=== PATIENT | male | born 1940 ===

== ENCOUNTER 2024-04-11 14:06 | Inpatient (IN) | payer OTHER ==
[~2024-04-11] VITALS: Ht 177.8 cm; Wt 77.6 kg
[2024-04-11 13:58] VITALS: BP 138/83
[~2024-04-11 14:06] MED LIST: ATIVAN0.5 MG PO; ATIVAN1 MG PO; ATIVAN2 MG/1 ML IM; DEPAKOTE SPRIN125 MG PO; ECOTRIN81 M1 PO; EXELON1 EAC2 TD; EXELON1 EACH T; FLOMAX0.4 MG PO; FLONASE ALLERG9.9 ML NAS; GEODON20 MG/1 ML IM; LEVOTHYROXINE150 MCG PO; LIPITOR20 MG PO; LOSARTAN POTAS100 M1 PO; NAMENDA-5 PO; PACERONE100 MG PO; PROSCAR5 M1 PO; RISPERDAL0.5 MG PO; SENNA8.6 MG PO; THERA-M CAPLET1 EACH PO; TM-VITE RX T1000 MCG PO; TOPROL XL50 M1 PO; TYLENOL325 M2 PO; VIBRA-TAB100 MG PO; XANAX0.25 MG PO
[2024-04-11] MEDS ORDERED: MG-AL HYDROXIDE/SIMETICONE 30 ML UDC PO PRN (14:50)
[2024-04-11] MEDS ORDERED: LORazepam 1 MG TAB PO PRN (14:50)
[2024-04-11] MEDS ORDERED: Magnesium Hydroxide 30 ML UDC PO PRN (14:50)
[2024-04-11] MEDS ORDERED: ACETAMINOPHEN 325 MG TAB PO PRN (14:50)
[2024-04-11] MEDS ORDERED: Ziprasidone Mesylate 20 MG VIAL IM PRN (15:45)
[2024-04-11] MEDS ORDERED: Water, Sterile 10 ML VIAL IM PRN (15:50)
[2024-04-11] MEDS ORDERED: Ziprasidone Mesylate 20 MG VIAL IM SCH (16:00)
[2024-04-11 20:00] VITALS: BP 181/88
[2024-04-11] MEDS ORDERED: RISPERIDONE 0.5 MG TAB PO SCH (21:00)
[2024-04-11] MEDS ORDERED: Memantine Hydrochloride 5 MG TAB PO SCH (21:00)
[2024-04-11] MEDS ORDERED: LORazepam 0.5 MG TAB PO SCH (22:00)
[2024-04-12 06:50] LABS: BASO % 0.4 % (0.0-1.0); EOS # 0.2 10*3/uL (0.0-0.4); EOS % 4.2 % (1.0-4.0); HEMATOCRIT 43.8 % (42.0-52.0); MEAN CELL VOLUME 87.6 fl (80.0-94.0); MEAN CORPUSCULAR HGB CONC 33.1 g/dl (33.0-37.0); MEAN PLATELET VOLUME 11.2 fl (9.6-12.3); MONO # 0.6 10*3/uL (0.1-1.0); MONO % 12.5 % (3.0-9.0); NEUT # 2.8 10*3/uL (2.3-7.9); NEUT % 60.8 % (47.0-73.0); PLATELET COUNT AUTOMATED 96 10*3/uL (130-400); RED CELL DISTRI WIDTH 14.3 % (0-14.5); WHITE BLOOD COUNT 4.6 10*3/uL (4.8-10.8)
[2024-04-12 07:29] LABS: ALKALINE PHOSPHATASE 115 U/L (46-116); BUN 25 mg/dl (9-23); CHLORIDE 106 mmol/L (98-107); CHOLESTEROL 108 mg/dL (<200); LDL CHOLESTEROL 51 mg/dL (9-159); POTASSIUM 3.4 mmol/L (3.4-5.1); SGPT/ALT 20 U/L (5-49); TOTAL PROTEIN 6.3 gm/dL (6.0-8.0); TRIGLYCERIDES 69 mg/dl (<150)
[2024-04-12 08:00] VITALS: BP 200/86
[2024-04-12 08:10] LABS: VITAMIN D, 25-HYDROXY 49.6 ng/mL (30-100)
[2024-04-12] MEDS ORDERED: METOPROLOL SUCCINATE XR 50 MG TAB PO SCH (09:00)
[2024-04-12] MEDS ORDERED: RIVASTIGMINE 13.3 MG/24 HR TDM T SCH (09:00)
[2024-04-12] MEDS ORDERED: FINASTERIDE 5 MG TAB PO SCH (09:00)
[2024-04-12] MEDS ORDERED: Doxycycline Hyclate 100 MG CAP PO SCH (09:00)
[2024-04-12] MEDS ORDERED: Amiodarone Hydrochloride 200 MG TAB PO SCH (09:00)
[2024-04-12] MEDS ORDERED: ASPIRIN ENTERIC COATED 81 MG TAB PO SCH (10:00)
[2024-04-12] MEDS ORDERED: Levothyroxine Sodium 150 MCG TAB PO SCH (10:00)
[2024-04-12] MEDS ORDERED: Losartan Potassium 50 MG TAB PO SCH (10:00)
[2024-04-12 12:02] VITALS: BP 136/72
[2024-04-12] MEDS ORDERED: RISPERIDONE 0.5 MG TAB PO SCH (16:00)
[2024-04-12 20:00] VITALS: BP 153/80
[2024-04-12] MEDS ORDERED: Tamsulosin Hydrochloride 0.4 MG CAP PO SCH (21:00)
[2024-04-12] MEDS ORDERED: ATORVASTATIN CALCIUM 20 MG TAB PO SCH (21:00)
[2024-04-13 07:51] VITALS: BP 187/102
[2024-04-13 10:32] VITALS: BP 110/62
[2024-04-13 19:09] VITALS: BP 176/95
[2024-04-14 08:00] VITALS: BP 138/74
[2024-04-14 20:00] VITALS: BP 140/70
[2024-04-15 08:00] VITALS: BP 122/58
[2024-04-15 09:28] LABS: BASO % 0.5 % (0.0-1.0); EOS # 0.2 10*3/uL (0.0-0.4); EOS % 3.3 % (1.0-4.0); HEMATOCRIT 46.5 % (42.0-52.0); MEAN CELL VOLUME 87.6 fl (80.0-94.0); MEAN CORPUSCULAR HGB 28.8 pg (27.0-31.0); MEAN CORPUSCULAR HGB CONC 32.9 g/dl (33.0-37.0); MEAN PLATELET VOLUME 10.8 fl (9.6-12.3); MONO # 0.5 10*3/uL (0.1-1.0); MONO % 7.3 % (3.0-9.0); NEUT # 4.8 10*3/uL (2.3-7.9); NEUT % 71.8 % (47.0-73.0); PLATELET COUNT AUTOMATED 114 10*3/uL (130-400); RED BLOOD COUNT 5.31 10*6/uL (4.50-5.90); WHITE BLOOD COUNT 6.6 10*3/uL (4.8-10.8)
[2024-04-15 09:46] LABS: POTASSIUM 4.1 mmol/L (3.4-5.1); TOTAL PROTEIN 6.1 gm/dL (6.0-8.0)
[2024-04-15 11:52] VITALS: BP 134/84
[2024-04-15] MEDS ORDERED: SODIUM CHLORIDE 0.9% 1,000 ML IV ONE (14:30)
[2024-04-15 20:00] VITALS: BP 125/80
[2024-04-16] MEDS ORDERED: KEPPRA500 MG PO (16:31)
== END 2024-04-16 08:25 | disposition short-term general hospital (02) | DRG 883 ==
LOC: 3N 14:06
PROVIDERS: Student in an Organized Health Care Education/Training Program; ADMIT Psychiatry & Neurology Psychiatry; ATTEND Psychiatry & Neurology Psychiatry
PROC: GZ51ZZZ Individual Psychotherapy, Behavioral (ICD-10-PCS; principal; 2024-04-12)
DX: F63.81 Intermittent explosive disorder (principal); N18.31 Chronic kidney disease, stage 3a; G93.41 Metabolic encephalopathy; J69.0 Pneumonitis due to inhalation of food and vomit; F23 Brief psychotic disorder; E44.0 Moderate protein-calorie malnutrition; I12.9 Hypertensive chronic kidney disease with stage 1 through stage 4 chronic kidney disease, or unspecified chronic kidney disease; E03.9 Hypothyroidism, unspecified; E78.5 Hyperlipidemia, unspecified; G90.9 Disorder of the autonomic nervous system, unspecified; Z20.822 Contact with and (suspected) exposure to COVID-19; N40.0 Benign prostatic hyperplasia without lower urinary tract symptoms; I48.91 Unspecified atrial fibrillation; E11.22 Type 2 diabetes mellitus with diabetic chronic kidney disease; Z79.899 Other long term (current) drug therapy; Z68.24 Body mass index [BMI] 24.0-24.9, adult